=== PATIENT | female | born 1945 | race Caucasian/White ===

== ENCOUNTER 2018-09-24 11:36 | Inpatient (IN) | payer MEDICARE, MEDICAID ==
[2018-09-24 11:50] VITALS: BMI 19.5
[2018-09-24 12:53] LABS: BASO # 0.02 K/mm3 (0.0-2.0); BASO % 0.3 % (0.0-3.0); EOS % 0.2 % (1.5-5.0); GRAN # 3.81 (1.4-6.5); GRAN % 58.4 % (50.0-68.0); HEMOGLOBIN 13.9 g/dL (12.0-16.0); LYMPH # 2.4 (1.2-3.4); MEAN CELL VOLUME 96.4 fl (80.0-105.0); MEAN CORPUSCULAR HEMOGLOBIN 31.2 pg (25.0-35.0); MEAN CORPUSCULAR HGB CONC 32.4 g/dl (31.0-37.0); MEAN PLATELET VOLUME 10.4 fl (7.0-11.0); MONO # 0.3 (0.1-0.6); MONO % 5.1 % (1.0-6.0); PH,URINE 7.5 (4.7-8.0); RBC 4.45 10^6/uL (3.5-6.1); URINE BILIRUBIN NEGATIVE (NEGATIVE); URINE BLOOD NEGATIVE (NEGATIVE); URINE GLUCOSE (UA) NEGATIVE (NEGATIVE); URINE LEUKOCYTE ESTERASE NEGATIVE Leu/uL (NEGATIVE); URINE PROTEIN NEGATIVE mg/dL (<30 mg/dL); URINE UROBILINOGEN 0.2 E.U./dL (<1 E.U./dL); WHITE BLOOD COUNT 6.5 10^3/uL (4.5-11.0)
[2018-09-24 12:54] LABS: URINE APPEARANCE CLEAR (CLEAR); URINE COLOR YELLOW (YELLOW)
[2018-09-24 13:03] LABS: ACETAMINOPHEN < 10.0 ug/ml (10.0-20.0); ALB/GLOB RATIO 1.2 (1.1-1.8); ALBUMIN 4.5 g/dL (3.0-4.8); ALT/SGPT 37 U/L (7-56); AST/SGOT 32 U/L (14-36); BLOOD UREA NITROGEN 14 mg/dL (7-21); CALCIUM 9.4 mg/dL (8.4-10.5); GFR NON-AFRICAN AMERICAN > 60; SALICYLATE < 1 mg/dL (2.0-20.0)
[2018-09-24] MEDS ORDERED: Albuterol-Ipratrop 3 mg / 0.5 (3 ml) UD IH STA (13:38)
--- NOTE | 2018-09-24 14:07 | ED PDOC ---
Arrival/HPI - General Chief Complaint: Psychiatric Evaluation Time Seen by Provider: 09/24/18 11:37 Historian: Patient, Family - History of Present Illness Narrative History of Present Illness (Text): 09/24/18 14:03 73yo female with pmhx of Asthma bib the daughter for psychiatric evaluation. The daughter states patient was seen today for the first time by Dr. Finley and she referred her to ED for admission in order to adjust her medication. States she is not sure why patient is on psych medications. Notes it was given in [place]. [facility] patient has been more confused and lethargic with the medications. Patient also report cough and wheezing. [facility] patient usually use inhaler for asthma but fort it at home. Patient denies SI/HI, hallucination, fever, chills, chest pain, SOB, diaphoresis, abdominal pain. Past Medical History - Provider Review Nursing Documentation Reviewed: Yes - Infectious Disease Hx of Infectious Diseases: None - Cardiac Hx Cardiac Disorders: Yes Hx Hypertension: Yes - Pulmonary Hx Respiratory Disorders: Yes Hx Asthma: Yes - Neurological Hx Neurological Disorder: No - HEENT Hx HEENT Disorder: Yes Hx Cataracts: Yes Other/Comment: Wears Glasses - Renal Hx Renal Disorder: No - Endocrine/Metabolic Hx Endocrine Disorders: No - Hematological/Oncological Hx Blood Disorders: No - Integumentary Hx Dermatological Disorder: No - Musculoskeletal/Rheumatological Hx Musculoskeletal Disorders: No - Gastrointestinal Hx Gastrointestinal Disorders: Yes Hx Gastritis: Yes - Genitourinary/Gynecological Hx Genitourinary Disorders: No - Psychiatric Hx Psychophysiologic Disorder: Yes Hx Anxiety: Yes Hx Depression: Yes Hx Substance Use: No - Surgical History Hx Appendectomy: Yes Hx Hysterectomy: Yes Hx Orthopedic Surgery: Yes (L wrist) Family/Social History - Physician Review Nursing Documentation Reviewed: Yes Family/Social History: Unknown Family HX Smoking Status: Heavy Smoker > 10 Cigarettes Daily Hx Alcohol Use: Yes (Vodka) Frequency of alcohol use: Daily Hx Substance Use: No Allergies/Home Meds Allergies/Adverse Reactions: Allergies diphenhydramine [From Benadryl] Allergy (Verified 09/24/18 11:50) RASH Home Medications: Home Meds Medication Instructions Recorded Confirmed RX: Alprazolam [Xanax] 2 mg PO BID 09/24/18 09/24/18 RX: Citalopram [celEXA] 20 mg PO DAILY 09/24/18 09/24/18 RX: Clindamycin [Cleocin] 300 mg PO Q6 09/24/18 09/24/18 RX: Losartan [Cozaar] 50 mg PO DAILY 09/24/18 09/24/18 RX: Meclizine [Meclizine*] 25 mg PO BID 09/24/18 09/24/18 RX: Montelukast Sodium [Singulair] 10 mg PO DAILY 09/24/18 09/24/18 RX: Ranitidine HCl [Zantac] 300 mg PO DAILY 09/24/18 09/24/18 Review of Systems - Physician Review All systems were reviewed & negative as marked: Yes - Review of Systems Constitutional: Normal Eyes: Normal ENT: Normal Respiratory: Normal Cardiovascular: Normal Gastrointestinal: Normal Genitourinary Female: Normal Musculoskeletal: Normal Skin: Normal Neurological: Normal Endocrine: Normal Hemo/Lymphatic: Normal Psychiatric: Normal Physical Exam Vital Signs Reviewed: Yes Vital Signs Temp Pulse Resp BP Pulse Ox 09/24/18 12:25 98.8 F 90 18 150/66 96 09/24/18 11:49 99.1 F 92 H 23 176/88 H 95 Temperature: Afebrile Blood Pressure: Normal Pulse: Regular Respiratory Rate: Normal Appearance: Positive for: Well-Appearing, Non-Toxic, Comfortable Pain Distress: None Mental Status: Positive for: Alert and Oriented X 3 - Systems Exam Head: Present: Atraumatic, Normocephalic Pupils: Present: PERRL Extroacular Muscles: Present: EOMI Conjunctiva: Present: Normal Mouth: Present: Moist Mucous Membranes Neck: Present: Normal Range of Motion Respiratory/Chest: Present: Good Air Exchange, Wheezes (mild wheeze), Decreased Breath Sounds (Left upper base). No: Clear to Auscultation, Respiratory Distress, Accessory Muscle Use, Retracting, Rhonchi, Tachypneic, Tender to Palpation Cardiovascular: Present: Regular Rate and Rhythm, Normal S1, S2. No: Murmurs Abdomen: No: Tenderness, Distention, Peritoneal Signs Back: Present: Normal Inspection Upper Extremity: Present: Normal Inspection. No: Cyanosis, Edema Lower Extremity: Present: Normal Inspection. No: Edema Neurological: Present: GCS=15, CN II-XII Intact, Speech Normal Skin: Present: Warm, Dry, Normal Color. No: Rashes Psychiatric: Present: Alert, Oriented x 3, Normal Insight, Normal Concentration Medical Decision Making ED Course and Treatment: 09/24/18 18:44 PT in ED for stated history. she appeared calm in ED. Labs Chest xray CXR EKG EKG NSR @ 83bpm. No ST changes Pt was seen in ED by PES screener and admitted to Dr. Finley's service. Admission was however reversed to medical admission secondary to the chest xray finding Chest xray IMPRESSION: Questionable infiltrate/mass left upper lobe. Labs was unremarkable Case was MEETA Johnson and pt was admitted to his service and Dr. Finley consult. Pt was also seen in ED by Dr. Johnson. Result and plan was DW the daughter and she agreed. - Lab Interpretations Lab Results: 09/24/18 12:45 09/24/18 12:45 Lab Results 09/24/18 12:45: Alcohol, Quantitative < 10 09/24/18 12:45: Salicylates < 1 L, Acetaminophen < 10.0 L 09/24/18 12:45: Sodium 141, Potassium 4.8, Chloride 101, Carbon Dioxide 37 H, Anion Gap 8 L, BUN 14, Creatinine 0.7, Est GFR ( Amer) > 60, Est GFR (Non-Af Amer) > 60, Random Glucose 92, Calcium 9.4, Magnesium 2.0, Total Bilirubin 0.6, AST 32, ALT 37, Alkaline Phosphatase 98, Total Protein 8.1, Albumin 4.5, Globulin 3.6, Albumin/Globulin Ratio 1.2 09/24/18 12:45: Urine Color Yellow, Urine Appearance Clear, Urine pH 7.5, Ur Specific Rowan 1.015, Urine Protein Negative, Urine Glucose (UA) Negative, Uri ne Ketones Negative, Urine Blood Negative, Urine Nitrate Negative, Urine Bilirubin Negative, Urine Urobilinogen 0.2, Ur Leukocyte Esterase Negative 09/24/18 12:45: WBC 6.5, RBC 4.45, Hgb 13.9, Hct 42.9, MCV 96.4, MCH 31.2, MCHC 32.4, RDW 14.0, Plt Count 208, MPV 10.4, Gran % 58.4, Lymph % (Auto) 36.0 H, [place] % (Auto) 5.1, Eos % (Auto) 0.2 L, Baso % (Auto) 0.3, Gran # 3.81, Lymph # (Auto) 2.4, [place] # (Auto) 0.3, Eos # (Auto) 0.0, Baso # (Auto) 0.02 - Medication Orders Current Medication Orders: Discontinued Medications Albuterol/Ipratropium (Duoneb 3 Mg/0.5 Mg (3 Ml) Ud) 3 ml IH STAT STA Stop: 09/24/18 13:39 Disposition/Present on Arrival - Present on Arrival Any Indicators Present on Arrival: No History of DVT/PE: No History of Uncontrolled Diabetes: No Urinary Catheter: No History of Decub. Ulcer: No History Surgical Site Infection Following: None - Disposition Have Diagnosis and Disposition been Completed?: Yes Diagnosis: Depression, Pneumonia, Mass of lung Disposition: HOSPITALIZED Disposition Time: 14:55 Patient Plan: Admission Patient Problems: Current Active Problems Problem Status Onset Depression Acute Mass of lung Acute Pneumonia Acute Condition: STABLE
--- NOTE | 2018-09-24 17:10 | RAD ---
Date of service: 09/24/2018 HISTORY: admission COMPARISON: No prior. FINDINGS: LUNGS: Questionable infiltrate/mass left upper lobe. The finding is marked on the study for review. PLEURA: No significant pleural effusion identified, no pneumothorax apparent. CARDIOVASCULAR: Atherosclerotic calcifications identified primarily aortic arch. No radiographic findings to suggest acute or significant cardiovascular disease. OSSEOUS STRUCTURES: No significant abnormalities. Old posterolateral healed right rib fractures. VISUALIZED UPPER ABDOMEN: Normal. OTHER FINDINGS: None. IMPRESSION: Questionable infiltrate/mass left upper lobe. Follow-up recommended either conventional two-view chest with apical lordotic supplement or CT of the thorax.
[2018-09-24] MEDS ORDERED: cefTRIAXone 1 gm 1 GM/100 ML BAG IVPB STA (17:43)
[2018-09-24] MEDS ORDERED: Azithromycin 500MG/NS 250ml 500 MG/250 ML BAG IVPB STA (17:44)
--- NOTE | 2018-09-24 18:06 | CARD ---
APPROVED REPORT Date of service: 09/24/2018 EKG Measurement Heart [id number] <Conclusion> Normal sinus rhythm Normal ECG
[2018-09-24] MEDS: Albuterol-Ipratrop 3 mg / 0.5 (3 ml) UD IH SCH (19:30)
--- NOTE | 2018-09-24 22:56 | HP ---
DATE OF EXAM: 09/24/2018 HISTORY OF PRESENT ILLNESS: I was supposed to a do a house call on . She was brought in today by her daughter to see the psychiatrist, Dr. brenner for the first time. She was very confused and lethargic and was medicine given to her when she was in the [place] and right now we are going to stop the medications for her psychiatric issue and also evaluated wheezing and a cough that she has and there is something found on the chest x-ray. We are going to evaluate that. She has been coughing, using a nebulizer and some wheezes. PAST MEDICAL HISTORY: She has a past medical history of hypertension, cataracts. She wears glasses, gastritis, anxiety, depression. PAST SURGICAL HISTORY: She has appendectomy, hysterectomy and the left wrist surgery. FAMILY HISTORY: Unknown family history. SOCIAL HISTORY: She is a heavy smoker, about a pack a day for many years. She drinks vodka daily. No substance abuse. ALLERGIES: SHE HAS ALLERGY FROM BENADRYL. REVIEW OF SYSTEMS: No acute vision or hearing loss. No sore throat. There is a little bit of a cough and a wheeze, little shortness of breath if she does too much. No chest pain or shortness of breath, nausea, vomiting, constipation, diarrhea or problems urinating. No back pain, neck pain. Skin for most part is intact. Alert and oriented x3 as right now. No depression. No anxiety at this time. PHYSICAL EXAMINATION: GENERAL: She is well-appearing, nontoxic, comfortable, alert and oriented x3. VITAL SIGNS: She has temperature 98.8, pulse 90, respiratory 18, blood pressure 150/66, 96% O2 sat on room air. HEENT: Head is atraumatic, normocephalic. Extraocular muscles are intact. Pupils react to light and accommodation. Throat is moist. NECK: Supple. CARDIOPULMONARY: Regular rate. Normal S1, S2. LUNGS: Clear to auscultation bilaterally with decreased breath sounds. Poor inspiration, but no wheezes, rhonchi or rales. ABDOMEN: Soft, nontender. Positive bowel sounds. EXTREMITIES: No edema. NEUROLOGIC: GCS 50. Cranial nerves II-XII grossly intact. Alert and oriented x3, calm. SKIN: Warm and dry. No apparent rashes or ulcers. LYMPHS: Thyroid midline. No palpable appreciable lymphadenopathy. LABORATORY DATA: She had multiple tests done. Her EKG was normal sinus rhythm with a chest x-ray showed questionable infiltrate or mass in the left upper lobe. I will order a CAT scan. She has white count 6.5, hemoglobin 13.9, hematocrit 42.9, platelets 28. She has a salicylate less than 1, less than 10, alcohol is less than 10. Urine is clean. She has a sodium of 141, potassium 4.8, BUN 14, creatinine 0.7, GFR is greater than 60, sugar is 92, calcium 9.4, magnesium 2, total bili is 0.6, AST is 32, ALT is 37, alk phos 98, total protein is 8.1, albumin is 4.5. MEDICATIONS: She is on Xanax, Celexa, Cleocin, Cozaar, meclizine, Singulair, Zantac, not sure why she is on Xanax, Celexa high dosage and meclizine, Singulair, Zantac and Cozaar. IMPRESSION: She is going to have a consult with pulmonary. She will consult with Psychiatry with clearing her to see if she might need to go up to Psychiatry. She will be on Rocephin and Zithromax IV, plus DuoNebs [id number]. We will check a CAT scan of the chest. She is here for change in mentation, lethargy, also questionable dementia and a lung mass versus infiltrate and we will watch her very closely. Juan Miguel Johnson DO MTDPatrick
[2018-09-25 06:13] LABS: HEMOGLOBIN 12.5 g/dL (12.0-16.0); MEAN CELL VOLUME 96.1 fl (80.0-105.0); MEAN CORPUSCULAR HEMOGLOBIN 30.6 pg (25.0-35.0); MEAN CORPUSCULAR HGB CONC 31.9 g/dl (31.0-37.0); MEAN PLATELET VOLUME 10.2 fl (7.0-11.0); RBC 4.08 10^6/uL (3.5-6.1); WHITE BLOOD COUNT 6.3 10^3/uL (4.5-11.0)
[2018-09-25] MEDS: Albuterol-Ipratrop 3 mg / 0.5 (3 ml) UD IH SCH ×4 (06:24→20:19)
[2018-09-25] MEDS ORDERED: Albuterol-Ipratrop 3 mg / 0.5 (3 ml) UD IH PRN (06:55)
[2018-09-25 07:16] LABS: ALB/GLOB RATIO 1.2 (1.1-1.8); ALBUMIN 3.7 g/dL (3.0-4.8); ALT/SGPT 33 U/L (7-56); AST/SGOT 30 U/L (14-36); BLOOD UREA NITROGEN 10 mg/dL (7-21); CALCIUM 8.6 mg/dL (8.4-10.5); GFR NON-AFRICAN AMERICAN > 60
--- NOTE | 2018-09-25 08:12 | CON ---
DATE: 09/25/2018 PULMONARY CONSULTATION REASON FOR PULMONARY CONSULTATION: Asthma. REFERRING PHYSICIAN FOR THIS PULMONARY CONSULTATION: Dr. Johnson. History is obtained via extensive discussion with the night nurse. I have also discussed the case with the patient at length, and reviewed the chart at length. HISTORY OF PRESENT ILLNESS: The patient is a 73-year-old female, with past medical history significant for asthma, hypertension, psychiatric disorder (unknown diagnosis), who presents to [facility] - brought in by the daughter - because of recent lethargy and confusion. The daughter stated that the patient was put on psychiatric medication in the [place]. However, because of the recent above symptoms, the daughter brought her mother to the hospital for additional evaluation and treatment. Again, I did discuss the case with the patient and nurse at length. There is no history of shortness of breath at rest or dyspnea on exertion. There is a history of cough with minimal sputum production for the past week. There is no history of chest pain, coughing up of blood, or chest pain - made worse with deep respirations. There is no history of temperatures, chills or infectious exposure. There is no history of night sweats, weight loss or appetite change prior to the above events. No history of leg or calf pains. No history of syncope or diaphoresis. No history of recent trauma. REVIEW OF SYSTEMS: No history of nausea, vomiting or diarrhea. No acute urinary symptoms. No new musculoskeletal complaints. Rest of the review of systems is negative. ALLERGIES: TO BENADRYL. SOCIAL HISTORY: Positive for tobacco, negative for alcohol. FAMILY HISTORY: No inheritable diseases. HOME MEDICATIONS: Include Singulair, Zantac, Cozaar, Celexa, Xanax, clindamycin and meclizine. PHYSICAL EXAMINATION: GENERAL: The patient appears awake and alert. She appears very comfortable. She is not short of breath at rest. VITALS: Temperature is 98.5, pulse 80, respirations 19, blood pressure 156/81. Oxygen saturation on room air is 96%. HEENT: Normocephalic, atraumatic. No JVD. CARDIOVASCULAR: Positive S1, S2. No S3 gallop. LUNGS: Decreased breath sounds at the bases. Minimal rhonchi. Minimal wheezing. EXTREMITIES: No clubbing, cyanosis or edema. Calves are nontender to palpation. GASTROINTESTINAL: Abdomen is soft, nontender, nondistended. Bowel sounds are positive. SKIN: No acute rash. NEUROLOGIC: Exam limited at the present time. PERTINENT LABORATORY DATA: CAT scan of the chest was done last night and reviewed. There is a [facility] reading available. There is NO pulmonary infiltrate, mass or nodule noted. There are no pleural plaques. There is no significant lymphadenopathy. CBC: White count 6.3K, hemoglobin 12.5, hematocrit 39.2, platelets of 187,000. Complete metabolic profile: Carbon dioxide 37. Rest of the metabolic profile is within normal limits. IMPRESSION: 1. Acute bronchitis. 2. Asthma. 3. Psychiatric disorder. 4. Hypertension. PLAN: Again, I did discuss the case with the night nurse at length. I have also reviewed the chart at length, and discussed the case with the patient at length. The patient presents to [facility] - brought in by the daughter - for adjustment of her psychiatric medication. Again, she was put on psychiatric medication in the [place]. Over the past few days, she has been more lethargic and confused. Thus, as above, the daughter did bring the patient to the hospital for further evaluation and treatment of her psychiatric condition. In addition to the above, the patient also states to cough with sputum production over the past week. There are no other pulmonary symptoms reported. I did review the CAT scan of the chest. Official results are pending. There are no acute abnormalities noted. On physical exam, the patient is in [id number] bronchospasm. However, there is no significant alveolar-arterial gradient. Oxygen saturation on room air is 96%. I will continue the current DuoNeb treatments and add inhaled Pulmicort this morning. I will also add low-dose intravenous steroids this morning. The patient is also on antibiotic therapy. There are no temperatures noted. There is no leukocytosis. We can probably taper down the antibiotics at this point in time. Again, the patient appears awake and alert and conversive this morning. She does not appear confused. Psychiatric evaluation has been ordered. The patient does state to feeling better, and is clinically improved this morning. Additional Pulmonary intervention will be based on the clinical status of the patient. I will discuss the above with Dr. Johnson. Thank you very much for this pulmonary consultation. Kwame Calzada MD [facility] # [phone] ARCHANA
[2018-09-25] MEDS: Budesonide 0.5 mg/2 ml Inhal Susp UD IH SCH ×2 (08:23→20:19)
--- NOTE | 2018-09-25 09:00 | CP.PCM.PCO ---
Addendum Addendum: 09/25/18 09:00 correction to ED documentation, this service writer advisor never spoke to the pt, but pt was referred to ED by .
[2018-09-25] MEDS: MethylPREDNISolone 40 mg Vial IVP SCH ×2 (09:11→21:05)
--- NOTE | 2018-09-25 09:50 | PN ---
DATE: 09/25/2018 SUBJECTIVE: She came in yesterday with psychiatric issues and also short of breath and coughing. There was a question of chest x-ray which showed questionable infiltrate and mass in left upper lung. I ordered a CAT scan of the chest which is pending and Pulmonary evaluation. Waiting for the response. She is resting in bed. She also needs Psychiatric care. She is going to go up the psychiatric floor I believe after she is stable pulmonary vu. PHYSICAL EXAMINATION: VITAL SIGNS: She has 98.5 temperature, 67 pulse, 156/81 blood pressure,18 respiratory rate and 96% O2 sat on 2 liters. HEENT: Head is atraumatic and normocephalic. HEART: Regular rate. LUNGS: Decreased breath sounds, but clear. She had wheezing yesterday, the breathing is better today with the Solu-Medrol. ABDOMEN: Soft. EXTREMITIES: No edema. MEDICATIONS: She is on Cozaar, DuoNebs, , Pepcid, Pulmicort, Rocephin, Singulair, Solu-Medrol 30 IV every 12 hours and Zithromax. LABORATORY DATA: She has a 6.3 white count, 12.5 hemoglobin, 39.2 hematocrit and 487 platelets. A 139 sodium, potassium 4, BUN 12, creatinine 0.7, GFR is greater than 60, sugar is 97, calcium is 8.6, total bili is 0.5, AST is 30, ALT is 33, alk phos 74, total protein 6.8 and albumin is 3.7. Urine was clean. Toxicology was clean. She is being seen by Pulmonary, they will give us some guidance in her pulmonary care. There is also a consult with Psychiatry. Hopefully, when we are done Pulmonary vu, we will take her to fifth floor for psychiatric care and will continue aggressive treatment and care. She is on Solu-Medrol right now for her bronchitis. Awaiting the CAT scan of the chest. Let us know what that upper lung mass versus pneumonia looks like. Juan Miguel Johnson DO ARCHANA
[2018-09-25] MEDS ORDERED: cefTRIAXone 1 gm 1 GM/100 ML BAG IVPB SCH (10:00)
[2018-09-25] MEDS: Azithromycin 500MG/NS 250ml 500 MG/250 ML BAG IVPB SCH (10:36)
--- NOTE | 2018-09-25 12:21 | CT ---
Date of service: 09/24/2018 PROCEDURE: CT Chest without contrast HISTORY: mass COMPARISON: None available. TECHNIQUE: Contiguous axial images were obtained through the chest without intravenous contrast enhancement. Sagittal and coronal reconstructions were performed. Radiation dose: Total exam DLP = 161.29 mGy-cm. This CT exam was performed using one or more of the following dose reduction techniques: Automated exposure control, adjustment of the mA and/or kV according to patient size, and/or use of iterative reconstruction technique. FINDINGS: LUNGS: No acute infiltrate bilaterally. Limited bilateral basilar dependent atelectasis identified. Sub cm calcified granuloma noted right lower lobe 3.2 mm noncalcified nodule image 76 series 4 trace biapical fibrosis noted. Central airways appear clear. MEDIASTINUM: Nonaneurysmal abdominal aortic calcific atherosclerotic changes are identified. Borderline cardiomegaly. Main pulmonary artery unremarkable. No vascular congestion. No significant lymphadenopathy. Likely calcified lymph node at the right hilum though granuloma is the differential diagnosis. Non aneurysmal thoracic aortic atherosclerotic calcifications noted. PLEURA: No pleural fluid. No pneumothorax. BONES: No focal destructive bony lesion is identified however there is an anterior wedge compression fracture [id number] severity at T12, age indeterminate. UPPER ABDOMEN: 1.6 cm hypodense lesion upper midpole right kidney anteriorly, measuring 26 Hounsfield units. Potential complex or hyperdense cyst. Follow-up ultrasound or MRI advised with and without contrast. OTHER FINDINGS: None. IMPRESSION: 1. There is a 3.2 mm noncalcified nodule at the right lower lobe as discussed above with a calcified granuloma even smaller also at the right lower lobe. Consider follow-up chest CT at low-dose without contrast to demonstrate stability of this nodule in 12 months. No dominant mass bilateral lungs. 2. No prominent lymphadenopathy throughout the chest. 3. Borderline cardiomegaly. No pulmonary vascular congestion. 4. Incidental icun-zt-bxiheawl compression fracture T12, age indeterminate. 5. 1.6 cm hypodense lesion right kidney for which follow-up ultrasound or MRI with and without contrast is advised.
--- NOTE | 2018-09-25 18:34 | CON ---
DATE: 09/25/2018 HISTORY OF PRESENT ILLNESS: In short, the patient is a 73-year-old female with not known previous psychiatric history, but most likely, the patient suffered from depression and anxiety. The patient was brought in for psychiatric evaluation, and most likely, the patient was seen by Dr. Lees in outpatient clinic and was referred to the emergency room for further evaluation. The patient presented to be confused and lethargic. The patient was admitted for wheezing as well as cough. Psych consult was called for evaluation of anxiety and depression. The patient was seen and examined. This automotive service writer utilized translation line for interpretation, ID number is [id number]. The patient presented in good mood. The patient presented to be alert. The patient knows that she is in the hospital. The patient said that she came to the outpatient clinic, but she was referred to the emergency room. The patient reported that she feels little bit anxious. The patient was on some psychotropic medications back in [place]. The patient does not remember the name of the medications. The patient reported that she feels little bit anxious, the patient complained of insomnia. The patient asked this automotive service writer to give a call to her daughter(Brook, at [phone]). osteopathic resident gave a call and collaterals obtained. The patient lives with her boyfriend, who is having a lot of medical issues including bilateral lower extremities amputation. 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 The patient was exhausted by helping him, required help from the family. The patient was on most likely benzodiazepines back in [place], but family was not able to provide list of the medications. osteopathic resident students advised family to bring a list of the medications for this automotive service writer to review. Besides that, the patient never verbalized any thoughts of killing herself or others, but had difficulty to fall asleep and to stay asleep. The patient had never been admitted to the psychiatric inpatient unit, never tried to kill herself in the past. PHYSICAL EXAMINATION: VITAL SIGNS: Vital signs seems to be stable. Temperature 98.9, pulse 78, blood pressure 133/71, respirations 19, oxygen saturation is 97. MEDICATIONS: Reviewed. The patient is on DuoNeb, azithromycin, Pulmicort, Rocephin, Librium 25 mg p.o. every 6 hours as needed for agitation, Pepcid, Solu-Medrol, Singulair, Nicoderm. LABORATORY DATA: Labs reviewed. Chemistry reviewed. Urinalysis reviewed. Toxicology reviewed. As per report, most likely, the patient was drinking alcohol, but the patient denied. MENTAL STATUS EXAMINATION: The patient presented to be alert, in good spirit, but at times, no boundaries, maybe it is cultural, for example, the patient was saying that she loves voice intercept technician, even though that she met with him during the interview. Mood described as okay, but anxious. Affect was labile. Thought process, circumstantial. Thought content, the patient denied visual, auditory, or tactile hallucinations. Denied paranoid ideations. The patient denied thoughts of harming herself or others. Denied intent or plan. Insight and judgment seemed to be limited. Impulses are well controlled. IMPRESSION: Rule out anxiety and depression due to general medical condition, rule out major depressive disorder, rule out generalized anxiety disorder, rule out adjustment disorder. PLAN: Librium started by medical team. This automotive service writer will obtain collateral information and medication list from the patient's family. Remeron could be started for depression and insomnia, very small doses, like 7.5 mg at the nighttime. We will follow up and advise accordingly. Thank you very much for letting me participate in the care of your patient. Should you have any questions give me a call back. Malia Cedillo MD MTDPatrick
[2018-09-26] MEDS: Albuterol-Ipratrop 3 mg / 0.5 (3 ml) UD IH SCH ×4 (01:28→19:57)
[2018-09-26 06:53] LABS: HEMOGLOBIN 12.8 g/dL (12.0-16.0); MEAN CELL VOLUME 94.9 fl (80.0-105.0); MEAN CORPUSCULAR HEMOGLOBIN 29.9 pg (25.0-35.0); MEAN CORPUSCULAR HGB CONC 31.5 g/dl (31.0-37.0); MEAN PLATELET VOLUME 10.4 fl (7.0-11.0); RBC 4.28 10^6/uL (3.5-6.1); WHITE BLOOD COUNT 6.2 10^3/uL (4.5-11.0)
[2018-09-26 07:28] LABS: ALB/GLOB RATIO 1.2 (1.1-1.8); ALT/SGPT 36 U/L (7-56); AST/SGOT 22 U/L (14-36); BLOOD UREA NITROGEN 13 mg/dL (7-21); CALCIUM 9.6 mg/dL (8.4-10.5); GFR NON-AFRICAN AMERICAN > 60
--- NOTE | 2018-09-26 08:01 | PN ---
DATE: 09/26/2018 SUBJECTIVE: The patient appears comfortable this morning. She is not short of breath at rest. PHYSICAL EXAMINATION: VITAL SIGNS: (Last noted in the computer): Temperature 98.9, pulse 78, respiratory rate 19, blood pressure 139/71. Oxygen saturation on room air is 97%. HEENT: Normocephalic, atraumatic. NECK: No JVD. CARDIOVASCULAR: Positive S1, S2. No S3 gallop. LUNGS: Improved breath sounds at the bases. Less rhonchi. No wheezing this morning. EXTREMITIES: No clubbing, cyanosis or edema. Calves are nontender to palpation. GI: Abdomen is soft, nontender and nondistended. Bowel sounds are positive. SKIN: No acute rash. NEUROLOGIC: Exam limited at the present time. PERTINENT LABORATORY DATA: The CAT scan of the chest was officially read by Dr. Chaparro (Radiology) yesterday. There are no significant findings noted. However, there is a tiny (3.2 mm) nodule noted at the right lower lobe. Repeat CT scan in 12 months is suggested. The central airways are clear. Again, there is no lymphadenopathy. IMPRESSION: 1. Acute bronchitis. 2. Asthma. 3. Psychiatric disorder. 4. Tiny pulmonary nodule - right lower lobe. PLAN: The patient appears very comfortable this morning. She is not short of breath at rest. She does state to feeling much better overall. I did discuss the case with the night nurse at length. The night nurse stated the patient had a very good night. I did discuss the CAT scan findings above - with the patient at length this morning. Fortunately, the nurse (who was fluent in Bengali) was my tea plantation worker. The nurse slowly went over the CAT scan findings with the patient at length. The nurse also informed the patient that she should follow up with me in the office, and I left her a card/information for a followup appointment. On physical exam, there is significantly less bronchospasm noted. In addition, there is no significant alveolar-arterial gradient. Oxygen saturation on room air is now 97%. I will continue with the current nebulizer treatments and decrease the intravenous steroids this morning. Input by Psychiatry is also noted. Clinical status of the patient is certainly improved - compared to the initial presentation. I will discuss the above with Dr. Johnson this morning. Kwame Calzada MD AR[facility]NA
[2018-09-26] MEDS: Budesonide 0.5 mg/2 ml Inhal Susp UD IH SCH ×2 (08:21→19:58)
[2018-09-26] MEDS: MethylPREDNISolone 40 mg Vial IVP SCH ×2 (10:13→21:51)
[2018-09-26] MEDS: Azithromycin 500MG/NS 250ml 500 MG/250 ML BAG IVPB SCH (10:16)
--- NOTE | 2018-09-26 10:39 | PN ---
DATE: 09/26/2018 SUBJECTIVE: The patient was followed up. The patient presented better to compare with yesterday. Upper extremity tremor is subsiding. The patient reported that she slept better on Remeron, willing to take increased dose. The patient observed eating with a good appetite. Vital signs are stable. Medications reviewed. The patient is on antibiotics, Librium as well as Remeron at the nighttime for sleep. Labs reviewed. Discussed with nursing staff. The patient does not have any agitation or aggression. Does not have any behavioral disturbances. Based on the collateral information, the patient was drinking and the patient had history of alcohol withdrawals, upper extremity shakes and drinking first thing at the morning time. MENTAL STATUS EXAM: The patient presented with good personal hygiene, fair eye contact. Mood described as very good, "Excellento" Affect was more reactive, mood congruent. Thought process seems to be coherent and goal directed. Thought content, the patient denied visual, auditory, tactile hallucinations. Denied paranoid ideation. The patient does not present psychotic. Insight and judgment seems to be improving. Impulses are well controlled. IMPRESSION: Rule out anxiety and depression due to general medical condition and questionable alcohol use disorder, possible alcohol withdrawals and rule out adjustment disorder. PLAN: We will implement multivitamins, thiamine and folic acid. Remeron was increased to 15 mg for depression as well as to help the patient to sleep. The patient also is on Librium protocol. Please monitor vital signs. Meanwhile, medication list was requested from the family as well as from the [facility]. The patient is not in any acute distress, pose no imminent danger to self or others. This display card writer will follow up on this patient tomorrow. Thank you very much for letting me participate in care of your patient. Malia Cedillo MD [facility]NA
[2018-09-26] MEDS: Multivitamin With Minerals Tab PO SCH (11:24)
--- NOTE | 2018-09-26 11:29 | US ---
Date of service: 09/26/2018 PROCEDURE: Ultrasound of the Kidneys HISTORY: rec COMPARISON: None TECHNIQUE: Grayscale imaging was performed. FINDINGS: RIGHT KIDNEY: Measures: 9.8 cm. Normal in size, contour and echogenicity. No stone, solid mass lesion or hydronephrosis visualized. There is a 1.8 x 1.6 x 1.6 cm simple cyst in the upper pole LEFT KIDNEY: Measures: 9.9 cm. Normal in size, contour and echogenicity. No stone, solid mass lesion or hydronephrosis visualized. OTHER FINDINGS: None. IMPRESSION: No nephrolithiasis or hydronephrosis.
--- NOTE | 2018-09-26 11:41 | PN ---
DATE: 09/26/2018 SUBJECTIVE: I saw her resting comfortably in bed. She slept fairly well. She has no complaints this morning. PHYSICAL EXAMINATION: VITAL SIGNS: She has a 97.9 temperature, 89 pulse, 121/64 blood pressure, 20 respiratory rate, 94% sat on room air. HEAD: Atraumatic, normocephalic. GENERAL: She is alert and smiling at me. HEART: Regular rate with decreased breath sounds, but clear. ABDOMEN: Soft. EXTREMITIES: No edema. MEDICATIONS: She is currently on Cozaar, DuoNebs, Librium, Nicoderm, Pepcid, Pulmicort, Remeron, Singulair, Solu-Medrol she is down to 20 every 12 hours as per Pulmonary, azithromycin. LABORATORY DATA: She has a white count of 6.2, hemoglobin 12.8, hematocrit 40.6, platelets of 217. Sodium 141, potassium 4.6, BUN 30, creatinine 0.6, GFR is greater than 60, sugar is 156, calcium is 9.6, total bili is 0.3. AST is 22, ALT is 36, alk phos 83, total protein 7.2. Urine was clean. Toxicology was clean. ASSESSMENT AND PLAN: I am hoping to discharge her tomorrow if she does well tonight. She is on Librium because she is a major drinker. Also, her lungs are improved on the CAT scan of lung to check her kidney, we will do an ultrasound of her kidneys. We will see what that shows us, also lungs are concerned. I am hoping to discharge her tomorrow. Juan Miguel Johnson DO MTDD
[2018-09-27] MEDS: Albuterol-Ipratrop 3 mg / 0.5 (3 ml) UD IH SCH ×2 (01:22→08:26)
[2018-09-27 07:14] LABS: HEMOGLOBIN 13.3 g/dL (12.0-16.0); MEAN CELL VOLUME 95.6 fl (80.0-105.0); MEAN CORPUSCULAR HEMOGLOBIN 30.5 pg (25.0-35.0); MEAN CORPUSCULAR HGB CONC 31.9 g/dl (31.0-37.0); MEAN PLATELET VOLUME 10.4 fl (7.0-11.0); RBC 4.36 10^6/uL (3.5-6.1); RED CELL DISTRIBUTION WIDTH 14.2 % (11.5-14.5); WHITE BLOOD COUNT 8.1 10^3/uL (4.5-11.0)
--- NOTE | 2018-09-27 07:15 | PN ---
DATE: 09/27/2018 PULMONARY NOTE SUBJECTIVE: The patient appears very comfortable this morning. She is not short of breath at rest. PHYSICAL EXAMINATION: VITALS: (Last noted in the computer): Temperature is 98.9, pulse 83, respirations 19, blood pressure 137/82. Oxygen saturation on room air is 95%. HEENT: Normocephalic, atraumatic. No JVD. CARDIOVASCULAR: Positive S1, S2. No S3 gallop. LUNGS: Clear bilaterally this morning. EXTREMITIES: No clubbing, cyanosis, or edema. Calves are nontender to palpation. GASTROINTESTINAL: Abdomen is soft, nontender, and nondistended. Bowel sounds are positive. SKIN: No acute rash. NEUROLOGIC: Limited at the present time. IMPRESSION: 1. Acute bronchitis. 2. Asthma. 3. Psychiatric disorder. 4. Tiny pulmonary nodule - right lower lobe. PLAN: The patient appears very comfortable this morning. She is not short of breath at rest. She does state to feeling much better overall. I did discuss the case with the night nurse at length. The night nurse stated that the patient had a very good night. On physical exam, the patient's lungs are now clear. In addition, the oxygen saturation on room air is now 95%. I will continue the current nebulizer treatments and change to oral steroids this morning. I did re-enforce to the patient that she will need to follow up with me in the office - concerning her pulmonary nodule. She fully agrees. Clinical status of the patient is significantly improved overall. I will discuss the above with Dr. Johnson. Kwame Calzada MD [facility]NA
[2018-09-27 07:25] LABS: ALB/GLOB RATIO 1.2 (1.1-1.8); ALBUMIN 4.4 g/dL (3.0-4.8); ALT/SGPT 58 U/L (7-56); AST/SGOT 47 U/L (14-36); BLOOD UREA NITROGEN 15 mg/dL (7-21); CALCIUM 9.4 mg/dL (8.4-10.5); GFR NON-AFRICAN AMERICAN > 60
[2018-09-27] MEDS: Budesonide 0.5 mg/2 ml Inhal Susp UD IH SCH (08:26)
[2018-09-27 09:01] VITALS: BP 148/77; PULSE 90; RESP 20; TEMP 98.6; O2SAT 93
[2018-09-27] MEDS: Azithromycin 500MG/NS 250ml 500 MG/250 ML BAG IVPB SCH (09:29)
[2018-09-27] MEDS: Multivitamin With Minerals Tab PO SCH (09:34)
--- NOTE | 2018-09-27 11:48 | DS ---
HISTORY OF PRESENT ILLNESS: She is walking in the room. She is feeling better. She is off IV Solu-Medrol. She was on prednisone this morning. I get changed Zithromax to a Z-denisse. She has definitely improved. Psychiatry says she has not an injury to herself or anybody else. We will discharge her today. She can follow up on the outpatient doing a house call on her. PHYSICAL EXAMINATION: VITAL SIGNS: She has 98.9 temperature, 83 pulse, 137/82 blood pressure, 19 respiratory rate, and 95% O2 saturation on room air. HEAD: Atraumatic, normocephalic. HEART: Regular rate. LUNGS: Decreased breath sounds, but clear. ABDOMEN: Soft. EXTREMITIES: No edema. ASSESSMENT AND PLAN: She has a few things going on. She has a dementia, bronchitis, pulmonary nodule, change in mentation, also lethargy. She has a history of alcohol abuse. She will be discharged today. She will follow up with Dr. Johnson on the outpatient, I can do house call or for house call. I discussed this at length with Pulmonology. I will follow up with the CAT scan on the outpatient. Juan Miguel Johnson DO MTDD
--- NOTE | 2018-09-27 18:32 | PN ---
DATE: 09/27/2018 SUBJECTIVE: The patient was followed up today. The patient appears to be in good spirit. The patient reported her mood is great. The patient denied any thoughts of harming herself or others. Anxiety is obviously under control. The patient does not have any upper extremity shakes. The patient presented very well. Report from Dr. Lees outpatient clinic is really appreciated. PHYSICAL EXAMINATION: VITAL SIGNS: Seems to be stable. Temperature 98.6, pulse is 90, blood pressure 148/77, respiration 20, oxygen saturation was 93%. MENTAL STATUS EXAM: The patient appears to be alert and oriented, pleasant, much better to compare with the first interaction. The patient does not have any withdrawal symptoms, appears to be much calmer. The patient reported that she has good appetite and sleep. Denied any thoughts of harming herself or others. Thought process seems to be coherent and goal directed. Thought content, the patient denied visual, auditory, tactile hallucinations. Denied paranoid ideations. As per collateral information from the staff, the patient does not exhibit any aggressive or agitated behavior. The patient is not suicidal, homicidal. Insight and judgment seems to be in good control. LABORATORY DATA: Labs reviewed. Most recent was from today. MEDICATIONS: The patient was on the following medications, Xanax 2 mg twice a day, Celexa 20 mg daily, which was prescribed by her primary care physician, Dr. Db Mccrary. At the present moment, the patient was on Remeron 15 mg at the nighttime for insomnia. The patient was on Librium tapering dose. Celexa was not resumed. As greeting card writer described above, the patient was on Librium and was not on Xanax. The patient was on folic acid, Cozaar, Solu-Medrol, Remeron 15 mg at the nighttime, Singulair, multivitamins, Nicoderm, prednisone and vitamin B1. IMPRESSION: The patient has history of alcohol use disorder, possible alcohol withdrawal symptoms, rule out adjustment disorder, rule out substance-induced mood disorder, rule out major depressive disorder. PLAN: The patient has information about outpatient clinic. The patient has prescription at home. Remeron could be given to the patient by primary care physician. Meanwhile, the patient is not in any imminent danger to self or others, could be followed up as outpatient. Malia Cedillo MD [facility] # [id number]
== END 2018-09-27 14:54 | disposition home health service (06) | DRG 202 ==
LOC: ED 11:36 → ERH 14:56 → UNDOADMIN 14:56 → ERH 22:45 → 3RSO 23:07 → 3RNO 09-26 18:45
PROVIDERS: ADMIT Family Medicine; ATTEND Family Medicine
PROC: 3E0F7GC Introduction of Other Therapeutic Substance into Respiratory Tract, Via Natural or Artificial Opening (ICD-10-PCS; principal; 2018-09-25)
DX: J20.9 Acute bronchitis, unspecified (principal); F10.239 Alcohol dependence with withdrawal, unspecified; J45.909 Unspecified asthma, uncomplicated; F17.210 Nicotine dependence, cigarettes, uncomplicated; I10 Essential (primary) hypertension; F32.9 Major depressive disorder, single episode, unspecified; F41.9 Anxiety disorder, unspecified; R91.1 Solitary pulmonary nodule; F03.90 Unspecified dementia, unspecified severity, without behavioral disturbance, psychotic disturbance, mood disturbance, and anxiety; G47.00 Insomnia, unspecified; Z90.49 Acquired absence of other specified parts of digestive tract; Z90.710 Acquired absence of both cervix and uterus

== ENCOUNTER → 2018-12-28 | Outpatient (CLI) | payer MEDICARE | LOC: RAD 09:59 ==